=== PATIENT | female | born 1970 | race Caucasian/White ===

== ENCOUNTER → 2020-01-29 | Outpatient (CLI) | payer BC | LOC: COL.RAD 11:27 | DX: N20.0 Calculus of kidney (principal); K76.89 Other specified diseases of liver; R91.1 Solitary pulmonary nodule; Z90.710 Acquired absence of both cervix and uterus ==

== ENCOUNTER → 2020-02-06 | Outpatient (CLI) | payer BC | LOC: COL.RAD 07:35 | DX: K76.89 Other specified diseases of liver (principal); R91.1 Solitary pulmonary nodule | CPT/HCPCS: Q9967 ==

== ENCOUNTER → 2020-02-16 | Outpatient (CLI) | payer BC | LOC: MC.RAD 09:39 | DX: Z12.31 Encounter for screening mammogram for malignant neoplasm of breast (principal) ==